=== PATIENT | male | born 1995 | race Two or more races ===

== ENCOUNTER 2020-12-27 09:31 | Emergency (ER) | payer MEDICAID, OTHER ==
[~2020-12-27] VITALS: Ht 165.1 cm; Wt 72.6 kg
[2020-12-27 10:14] VITALS: BP 128/85
[2020-12-27] MEDS ORDERED: cefTRIAXone SOD 1,000 MG VL IM ONE (10:30)
[2020-12-27] MEDS ORDERED: KETOROLAC TROMETH 60MG/2ML VIAL IM ONE (10:30)
== END 2020-12-27 10:50 | disposition home or self-care (01) ==
LOC: ER 09:31
DX: L03.032 Cellulitis of left toe (principal); K21.9 Gastro-esophageal reflux disease without esophagitis; Z90.49 Acquired absence of other specified parts of digestive tract
CPT/HCPCS: 96372; 99284; J0696; J1885